=== PATIENT | female | born 2000 | race Caucasian/White ===

== ENCOUNTER 2022-06-02 15:29 | Emergency (ER) | payer OTHER, SELFPAY ==
[2022-06-02 15:45] VITALS: BP 115/72; PULSE 72; RESP 14; O2SAT 95; BMI 22.3
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
[2022-06-02] MEDS: hyDROXYzine 25 mg Capsule 50 MG PO (17:19)
--- NOTE | 2022-06-02 18:23 | PC.NURSE ---
transfer of care this nurse took over care of pt at appromimately 1730. pt calm and cooperative duration of stay.
[2022-06-02] MEDS: sertraline 50 mg Tablet PO (18:26)
[2022-06-02] MEDS: lamoTRIgine 100 mg Tablet 25 MG PO (18:26)
--- NOTE | 2022-06-04 07:08 | DCPLANNER ---
Addendum entered by Julia Palafox 07/20/22 13:10: Patient had a follow up appointment scheduled for 07.05.22 at [facility] - patient did attend appointment. Addendum entered by Julia Palafox 06/11/22 10:44: Patient has a follow up appointment scheduled for Tuesday, July 05, 2022 at 9:00 with Lauri Hernandez at [facility]. Clinic will call patient with appointment information. Original Note: barber shop manager had message to schedule a follow up appointment for patient with [facility] for therapy services. barber shop manager sent patients information to the front office staff at [facility]. Patients information will be printed and reviewed. Clinic will call patient with appointment information.
== END 2022-06-02 18:25 | disposition home or self-care (01) ==
PROVIDERS: Emergency Provider Nurse Practitioner Family
DX: F43.10 Post-traumatic stress disorder, unspecified (principal); Z91.410 Personal history of adult physical and sexual abuse
CPT/HCPCS: 99283

== ENCOUNTER → 2022-07-08 13:20 | Outpatient (BNVA) | payer OTHER, SELFPAY | PROVIDERS: Visit Provider Nurse Practitioner Women's Health | DX: Z01.419 Encounter for gynecological examination (general) (routine) without abnormal findings (principal); Z11.3 Encounter for screening for infections with a predominantly sexual mode of transmission | CPT/HCPCS: 87491; 87591; 87661; 88175 ==

== ENCOUNTER 2024-12-18 09:19 | Emergency (ER) | payer OTHER, SELFPAY ==
[2024-12-18 09:27] VITALS: BP 127/84; PULSE 70; RESP 18; TEMP 36.5; O2SAT 98; BMI 23.7
--- NOTE | 2024-12-18 10:33 | ED_ITS ---
HPI - Abdominal Pain 2 General: Chief Complaint: Abdominal Pain Stated Complaint: Adom. pain / denies vomiting Time Seen by Provider: 12/18/24 09:22 Source: patient Mode of arrival: ambulatory Limitations: no limitations History of Present Illness: Patient is a 24-year-old female presents to ED today with a complaint of right lower abdominal pain. Patient states she initially began developing right lower abdominal pain yesterday but now feels like it is radiating across her lower abdomen/pelvis. She states she has had some intermittent periumbilical abdominal pain for months. She was reportedly seen at the [place] and they referred her to the emergency department. Patient states she is not having nausea, vomiting, diarrhea, changes in bowel movements. She denies dysuria, frequency, urgency. She is not having any vaginal discharge or vaginal odor. States there is a possibility of . She has not taken a home test. She has not been running fevers. She arrives in no acute distress with stable vital signs. She is currently rating her pain at a 4/10. MD elicited complaint: abdominal pain Pertinent past history: none Onset (ago): day(s) Pain Consistency: constant Location: RLQ, LLQ and Suprapubic Severity: moderate Pain scale (0-10): 4 Radiation: none Migration to: no migration Exacerbating factors: nothing Relieving factors: nothing Associated Symptoms: Denies change in bowel habits, chills, diarrhea, dysuria, fever(s), hematochezia, melena, nausea and vomiting Related Data Previous Rx's Medication Instructions Recorded cephalexin 500 mg capsule 500 mg PO Q6H 7 days #28 caps 12/18/24 Allergies Allergy/AdvReac Type Severity Reaction Status Date / Time No Known Allergies Allergy Unverified 07/23/22 13:34 Review of Systems 2 Const: Denies: fever(s), chills, body aches, fatigue or malaise Card: Denies: chest pain Resp: Denies: dyspnea GI: Reports: abdominal pain; Denies: nausea, vomiting, diarrhea, change in bowel habits, hematochezia or melena : Denies: flank pain, difficulty voiding, dysuria, urinary frequency, urinary urgency, urinary hesitancy, vaginal odor or vaginal discharge Musc: Denies: neck pain, back pain, extremity pain, extremity swelling, joint pain or joint swelling Skin/Breast: Denies: rash Neuro: Denies: headache(s), numbness in extremities, weakness in extremities or sensory changes PFSH ED 2 PFSH: Medical History PTSD (post-traumatic stress disorder) No pertinent past medical history neghx: htn,dm,thyroid,dvt/pe PCP: Unsure of who it is Anxiety Surgical History No pertinent past surgical history Family History Mother Thyroid disease Grandmother Thyroid disease Maternal Stroke Maternal Denies family history of Colon cancer Ovarian cancer Diabetes Heart disease Breast cancer Hypertension Uterine cancer Social History Smoking and tobacco/nicotine status: current every day tobacco/nicotine user (vape) Substance/Drug Use: former Date of last use: 2021 Physical Exam 2 Const: COMMON NORMALS: no acute distress, average body habitus, patient oriented x3, no limitations, healthy appearing, alert and well nourished G ENERAL APPEARANCE: cooperative Eye: COMMON NORMALS: no scleral icterus Resp: COMMON NORMALS: normal respiratory effort and clear to auscultation bilaterally AUSCULTATION: clear to auscultation bilaterally Cardio: COMMON NORMALS: regular rate and regular rhythm RATE: regular rate RHYTHM: regular rhythm GI: COMMON NORMALS: Normal to inspection, nondistended, normoactive bowel sounds present, Soft to palpation, No hepatosplenomegaly present and no masses INSPECTION: Yes normal to inspection AUSCULTATION: Yes normoactive bowel sounds PALPATION: Yes Soft to palpation, Yes Tenderness to palpation present (GI) (max tenderness to RLQ), No Guarding due to palpation present (GI), No Rigid due to palpation and Yes No hepatosplenomegaly present : COMMON NORMALS: Yes no CVA tenderness BLADDER/KIDNEY EXAM: Yes no CVA tenderness OTHER: defers pelvic Back/Pelvis: COMMON NORMALS: no CVA tenderness Neuro: COMMON NORMALS: patient oriented x3 SENSORIUM/ORIENTATION: Yes alert Course 2 Vital Signs: Vital signs: Vital Signs Temperature 97.7 F 12/18/24 09:27 Pulse Rate 63 12/18/24 12:29 Respiratory Rate 18 12/18/24 09:27 Blood Pressure 120/72 12/18/24 12:29 Pulse Oximetry 99 12/18/24 12:29 Oxygen Delivery Me thod Room Air 12/18/24 09:27 MDM - Abdominal Pain Medical Decision Making Patient is a 24-year-old female here for right lower abdominal pain radiating across. She clinically appears in absolutely no acute distress. Her vital signs are normal. Her blood work is completely normal. Her UA did have positive nitrates and 2+ bacteria. Will culture and place her on antibiotics. CT scan essentially unremarkable. No findings suggestive of acute appendicitis. She has no complaints of vaginal discharge/odor or dyspareunia to suggest PID. Deferred pelvic examination. negative. At this time she is cleared for discharge from ED but recommend f/u with her PCP later this week if symptoms are not improving. Return precautions discussed. Differential Diagnosis Likely abdominal pain, acute appendicitis, calculus of kidney, constipation and endometriosis Lab Data I reviewed the patient's lab results. 12/18/24 10:45 12/18/24 10:45 Labs/Radiology: Radiology Impressions Abdomen/Pelvis CT 12/18/24 12:02 IMPRESSION: 1. Small amount of free fluid in the cul-de-sac is physiologic. 2. The appendix is not identified. No secondary findings of appendicitis. 3. Mild increased fluid in the small bowel may indicate gastroenteritis. 4. No renal obstruction. 5. Fluid distended endometrium. Laboratory Results WBC 6.15 10^3/uL (3.29-11.43) 12/18/24 10:45 RBC 4.51 10^6/uL (3.85-5.65) 12/18/24 10:45 Hgb 14.30 g/dL (11.27-16.99) 12/18/24 10:45 Hct 43.0 % (36-47) 12/18/24 10:45 MCV 95.3 fl (85-98) 12/18/24 10:45 MCH 31.7 pg (27-33) 12/18/24 10:45 MCHC 33.3 g/dL (30-55) 12/18/24 10:45 RDW 12.0 % (12.1-15.1) L 12/18/24 10:45 Plt Count 272 10^3/cmm (157-399) 12/18/24 10:45 MPV 9.4 fL (7.4-10.4) 12/18/24 10:45 Neut % (Auto) 63.2 % 12/18/24 10:45 Lymph % (Auto) 24.7 % 12/18/24 10:45 Sutter % (Auto) 9.8 % 12/18/24 10:45 Eos % (Auto) 1.3 % 12/18/24 10:45 Baso % (Auto) 0.7 % 12/18/24 10:45 Neut # (Auto) 3.89 10^3/uL (1.8-7.7) 12/18/24 10:45 Lymph # (Auto) 1.5 10^3/uL (0.8-4.8) 12/18/24 10:45 Sutter # (Auto) 0.6 10^3/uL (0.2-0.9) 12/18/24 10:45 Eos # (Auto) 0.1 10^3/uL (0.0-0.8) 12/18/24 10:45 Baso # (Auto) 0.0 10^3/uL (0.0-0.1) 12/18/24 10:45 Nucleated RBC % (auto) 0 % 12/18/24 10:45 Nucleated RBCs # 0.0 /100WBC 12/18/24 10:45 Sodium 139 mmol/L (136-145) 12/18/24 10:45 Potassium 4.1 mmol/L (3.5-5.1) 12/18/24 10:45 Chloride 101 mmol/L (98-107) 12/18/24 10:45 Carbon Dioxide 26 mmol/L (22-29) 12/18/24 10:45 Anion Gap 16.1 (5-19) 12/18/24 10:45 BUN 12 mg/dL (6-20) 12/18/24 10:45 Creatinine 0.7 mg/dL (0.5-0.9) 12/18/24 10:45 GFR Calculation 102.0 mL/min (90-130) 12/18/24 10:45 Glucose 103 mg/dL (65-115) 12/18/24 10:45 Calculated Osmolality 288 mOsm/kg (285-295) 12/18/24 10:45 Calcium 9.5 mg/dL (8.5-10.5) 12/18/24 10:45 Total Bilirubin 0.7 mg/dL (0.15-1.2) 12/18/24 10:45 AST 17 U/L (0-32) 12/18/24 10:45 ALT 12 U/L (0-33) 12/18/24 10:45 Alkaline Phosphatase 35 U/L (35-105) 12/18/24 10:45 Total Protein 7.3 g/dL (6.6-8.7) 12/18/24 10:45 Albumin 4.7 g/dL (3.5-5.2) 12/18/24 10:45 Globulin 2.6 g/dL (1.3-4.6) 12/18/24 10:45 Lipase 19 U/L (13-60) 12/18/24 10:45 HCG, Qual Negative (Negative) 12/18/24 10:45 Urine Color Yellow (Yellow) 12/18/24 11:31 Urine Appearance Clear (CLEAR) 12/18/24 11:31 Urine pH 6.5 (5-7) 12/18/24 11:31 Ur Specific [place] 1.016 (1.005-1.030) 12/18/24 11:31 Urine Protein Negative (Negative) 12/18/24 11:31 Urine Glucose (UA) Negative (Normal) 12/18/24 11:31 Urine Ketones Negative (Negative) 12/18/24 11:31 Urine Blood Negative (Negative) 12/18/24 11:31 Urine Nitrate Positive (Negative) A 12/18/24 11:31 Urine Bilirubin Negative (Negative) 12/18/24 11:31 Urine Urobilinogen 0.2 mg/dL (Negative) 12/18/24 11:31 Ur Leukocyte Esterase Negative (Negative) 12/18/24 11:31 Urine RBC 0-2 /hpf (0-2) 12/18/24 11:31 Urine WBC 0-5 /hpf (0-5) 12/18/24 11:31 Ur Squamous Epith Cells 0-5 /hpf (0-5) 12/18/24 11:31 Amorphous Sediment Not Reportable 12/18/24 11:31 Urine Bacteria 2+ /hpf (NONE) H 12/18/24 11:31 Hyaline Casts 0.40 /lpf 12/18/24 11:31 All radiology interpretation(s) finalized by discharge Discharge Plan Discharge Patient Disposition: Home Clinical Impression: UTI (urinary tract infection) Qualifiers: Urinary tract infection type: acute cystitis Hematuria presence: without hematuria Qualified Code(s): N30.00 - Acute cystitis without hematuria Abdominal pain Qualifiers: Abdominal location: right lower quadrant Qualified Code(s): R10.31 - Right lower quadrant pain Condition: Stable Prescriptions: New cephalexin 500 mg capsule 500 mg PO Q6H 7 Days Qty: 28 0RF Discharge Orders: Discharge ED (Routine); Ordered 12/18/24 Ordered By: Rachel Bravo Patient Instructions: Urinary Tract Infection in Women (DC), Abdominal Pain (ED) Activity Restrictions/Additional Instructions: As we discussed, your urine analysis looks suspicious for a possible urinary tract infection. We will place you on antibiotics for this. We will attempt to culture of your urine for definitive diagnosis. CT imaging overall was unremarkable. You need to seek medical re-evaluation for worsening abdominal pain, fevers, vomiting, bloody diarrhea, severe flank pain, vaginal discharge/odor or painful intercourse, or generally feeling worse or unwell, or any other concerns you may have. Otherwise you can follow-up with primary care later this week for re-evaluation. I hope you begin to feel better soon. Coding Level of Care Code ED Concrete Worker for Natalie Delgadillo
[2024-12-18 11:07] LABS: Basophils % 0.7 %; Eosinophils # 0.1 10^3/uL (0.0-0.8); Eosinophils % 1.3 %; Lymphocytes # 1.5 10^3/uL (0.8-4.8); Lymphocytes % 24.7 %; Mean Corpuscular HGB Conc 33.3 g/dL (30-55); Mean Corpuscular Hemoglobin 31.7 pg (27-33); Mean Corpuscular Volume 95.3 fl (85-98); Mean Platelet Volume 9.4 fL (7.4-10.4); Monocytes # 0.6 10^3/uL (0.2-0.9); Monocytes % 9.8 %; Neutrophils # 3.89 10^3/uL (1.8-7.7); Neutrophils % 63.2 %; Nucleated Red Blood Cells % 0 %; Platelet Count 272 10^3/cmm (157-399); Red Blood Count 4.51 10^6/uL (3.85-5.65); White Blood Count 6.15 10^3/uL (3.29-11.43)
[2024-12-18 11:26] LABS: HCG, Serum Qual Negative (Negative)
[2024-12-18 11:29] LABS: Alanine Aminotransferase 12 U/L (0-33); Albumin Level 4.7 g/dL (3.5-5.2); Alkaline Phosphatase 35 U/L (35-105); Anion Gap 16.1 (5-19); Aspartate Amino Transferase 17 U/L (0-32); Blood Urea Nitrogen 12 mg/dL (6-20); Calcium 9.5 mg/dL (8.5-10.5); Carbon Dioxide 26 mmol/L (22-29); Chloride 101 mmol/L (98-107); Creatinine Clr Calc Pharmacy 108.1309; Globulin 2.6 g/dL (1.3-4.6); Glucose 103 mg/dL (65-115); Lipase 19 U/L (13-60); Osmolality Calculated 288 mOsm/kg (285-295); Potassium 4.1 mmol/L (3.5-5.1); Sodium 139 mmol/L (136-145); Total Bilirubin 0.7 mg/dL (0.15-1.2); Total Protein 7.3 g/dL (6.6-8.7)
[2024-12-18 11:59] VITALS: BP 134/86; PULSE 77; O2SAT 100
--- NOTE | 2024-12-18 12:02 | CT_ITS ---
WS: [id number] CT ABDOMEN AND PELVIS WITH CONTRAST HISTORY: RLQ abdominal pain TECHNIQUE: Imaging performed of the abdomen and pelvis with IV contrast. Single phase imaging of the abdomen. Coronal and sagittal reformats are submitted. All CT scans at [facility] use at [address] one of these dose optimization techniques: automated exposure control; mA and/or kV adjustment per patient size (includes targeted exams where dose is matched to clinical indication); or iterative re construction. IV CONTRAST: Omnipaque 350; 100 mL IV. Oral contrast: No DLP: 360.03 mGy.cm COMPARISON: None available. Lower thorax: Lung bases are clear. Heart is normal size. No hiatal hernia. Liver/biliary system: Normal size liver. Focal fatty sparing along the falciform ligament. Normal por kathrine vein. No intrahepatic duct dilatation. Gallbladder: Normal. No gallstones or wall thickening. No pericholecystic fluid. Pancreas: Normal size pancreas and pancreatic duct. No adjacent inflammation. Spleen: Normal size spleen. No mass or infarct. Adrenal glands: Normal. Right kidney: Normal. Left kidney: Normal size kidney with no obstruction. Cortical cyst mid kidney with thin septation benja sures 2.8 x 2.1 cm. Aorta: Normal. Lymphadenopathy: None. Free fluid: Small amount of free fluid in the cul-de-sac. GI tract: Mild distention of the stomach with fluid. No small bowel obstruction. There is a small lucio unt of increased fluid in the distal small bowel but no obstructive pattern. Appendix is not identifi ed. Abdominal wall: Unremarkable abdominal wall. No hernia. Pelvis: Small amount of free fluid in the pelvis. Small amount of fluid in the endometrium. Thick wal led corpus luteum cyst LEFT ovary measures 2.9 x 2.5 cm. Bones: Unremarkable. CT/CT abdomen pelvis w con* [id number] IMPRESSION: 1. Small amount of free fluid in the cul-de-sac is physiologic. 2. The appendix is not identified. No secondary findings of appendicitis. 3. Mild increased fluid in the small bowel may indicate gastroenteritis. 4. No renal obstruction. 5. Fluid distended endometrium.
[2024-12-18] MEDS: iohexol 350 mg/mL 500 mL Btl (per mL) IV (12:13)
[2024-12-18 12:29] VITALS: BP 120/72; PULSE 63; O2SAT 99
[2024-12-18 12:39] LABS: Bilirubin Urine Negative (Negative); Blood Urine Negative (Negative); Glucose Urine UA Negative (Normal); Ketones Urine Negative (Negative); Leukocyte Esterase Urine Negative (Negative); Nitrate Urine Positive (Negative); Protein Urine Negative (Negative); Specific Gravity, Urine 1.016 (1.005-1.030); Urine Appearance Clear (CLEAR); Urine Color Yellow (Yellow); Urobilinogen Urine 0.2 mg/dL (Negative); pH Urine 6.5 (5-7)
[2024-12-18 12:44] LABS: Add Urine Microscopic? YES; Bacteria Urine 2+ /hpf; RBC Urine 0-2 /hpf (0-2); Squamous Epithelial Cell Urine 0-5 /hpf (0-5); WBC Urine 0-5 /hpf (0-5)
[2024-12-18 13:07] LABS: Add Urine Culture? Yes
[2024-12-18 13:19] VITALS: BP 126/78; PULSE 62; O2SAT 100
== END 2024-12-18 13:22 | disposition home or self-care (01) ==
PROVIDERS: Emergency Provider Physician Assistant
DX: N30.00 Acute cystitis without hematuria (principal); F17.290 Nicotine dependence, other tobacco product, uncomplicated
CPT/HCPCS: 36415; 74177; 80053; 81001; 83690; 84703; 85025; 87086; 99285